=== PATIENT | male | born 1970 | race Caucasian/White ===

== ENCOUNTER 2017-12-15 15:18 | Emergency (ER) | payer OTHER ==
[2017-12-15 15:36] VITALS: BP 138/98; PULSE 101; O2SAT 99
--- NOTE | 2017-12-15 15:55 | ERPHSYRPT ---
- History of Present Illness Time Seen by Provider: 12/15/17 15:46 Source: patient Exam Limitations: no limitations Patient Subjective Stated Complaint: pt reports a few days ago he had to pull several ticks off of him-reports area on left abd and right briseno-red swollen and painful-unsure of fever but reports sweating more often lately-reports nausea with no vomiting or diarrhea-all over body aches Triage Nursing Assessment: pt pink warm and [id number] drainage noted from either area but redness and tenderness noted Physician History: 47-year-old white male arrives with complaints of tic bites to his left abdomen right briseno. He states he bit him several days ago he pulled them off he now has a small area of erythema on his left abdomen and a small area of erythema on his right briseno of the right briseno has a central darkened area no obvious ticks, he feels like he has fever. He has not been vomiting. Past medical history negative. Past surgical history includes orthopedic surgery on the right shoulder. Timing/Duration: day(s) (2 days) Severity: moderate Modifying Factors: Improves With: immobilization Associated Symptoms: nausea, malaise, No vomiting, No abdominal pain, No shortness of breath, No heartburn, No diaphoresis, No cough, No chills, No chest pain, No fever, No headaches, No loss of appetite, No rash, No syncope, No seizure, No weakness Allergies/Adverse Reactions: No Known Drug Allergies Allergy (Unverified 12/15/17 15:35) Hx Tetanus, Diphtheria Vaccination/Date Given: Yes (2016) Hx Influenza Vaccination/Date Given: No Hx Pneumococcal Vaccination/Date Given: No Immunizations Up to Date: Yes - Review of Systems Constitutional: Malaise, No Fever, No Chills Eyes: No Symptoms Ears, Nose, & Throat: No Symptoms Respiratory: No Cough, No Dyspnea Cardiac: No Chest Pain, No Edema, No Syncope Abdominal/Gastrointestinal: Nausea, No Abdominal Pain, No Vomiting, No Diarrhea , No Constipation, No Hematemesis, No Hematochezia, No Melena, No Dysphagia, No Appetite Changes Genitourinary Symptoms: No Symptoms Musculoskeletal: No Back Pain, No Neck Pain Skin: Other (erythematous area left abdomen, right briseno) Neurological: No Dizziness, No Focal Weakness, No Sensory Changes Psychological: No Symptoms Endocrine: No Symptoms All Other Systems: Reviewed and Negative - Past Medical History Pertinent Past Medical History: No - Past Surgical History Past Surgical History: Yes Musculoskeletal: Orthopedic Surgery Other Surgical History: right shoulder - Social History Smoking Status: Current every day smoker How long have you smoked: yrs Exposure to second hand smoke: Yes Drug Use: none Patient Lives Alone: No - Nursing Vital Signs Nursing Vital Signs: Initial Vital Signs Temperature 98.9 F 12/15/17 15:30 Pulse Rate 101 H 12/15/17 15:30 Respiratory Rate 18 12/15/17 15:30 Blood Pressure 138/98 12/15/17 15:30 O2 Sat by Pulse Oximetry 99 12/15/17 15:30 Pain Scale Pain Intensity 7 - Physical Exam General Appearance: no apparent distress, alert Eye Exam: PERRL/EOMI, eyes nml inspection Ears, Nose, Throat Exam: normal ENT inspection Neck Exam: normal inspection, non-tender, supple, full range of motion Respiratory Exam: normal breath sounds, lungs clear, No respiratory distress Cardiovascular Exam: regular rate/rhythm, normal heart sounds, normal peripheral pulses Gastrointestinal/Abdomen Exam: soft, normal bowel sounds, No tenderness, No mass Back Exam: normal inspection Extremity Exam: normal inspection, normal range of motion, pelvis stable Neurologic Exam: alert, oriented x 3, cooperative, epic cupid specialists II-XII nml as tested, normal mood/affect, nml cerebellar function, nml station & gait, sensation nml, No motor deficits Skin Exam: other (slight erythema left anterior abdomen approximately 1cm, ,, 1 cm slightly raised erythemma right anterior briseno darkened area centrally no tick noted) SpO2 Interpretation: normal (99%) SpO2: 99 Oxygen Delivery: Room Air - Course Nursing assessment & vital signs reviewed: Yes Ordered Tests: Active Orders 24 hr Category Date Time Status Wound Care STAT Care 12/15/17 15:49 Active Medication Summary Discontinued Medications Generic Name Dose Route Start Last Admin Trade Name Freq PRN Reason Stop Dose Admin Bacitracin Zinc 0.9 gm 12/15/17 15:49 Baciguent Packet TP 12/15/17 15:50 STAT ONE Diphtheria/Tetanus/Acell Pertussis 0.5 ml 12/15/17 15:50 Adacel Vial IM 12/15/17 15:51 .ONCE ONE Doxycycline Hyclate 100 mg 12/15/17 15:58 Vibramycin 100 Mg PO 12/15/17 15:59 STAT ONE - Progress Progress: improved Progress Note: 12/15/17 15:54 This is a 47-year-old white male who arrives with complaints that he pulled some ticks off of him 2 days ago. He states he has erythema in the area where he pulled them off. He has slight erythema on the left anterior abdomen approximately 1 cm slightly raised. He also has a 1 cm area which is raised on the right anterior briseno this has a dark center I do not see a tick. This does not look typical for tic bites. However Will go ahead and place patient on doxycycline 100 mg orally twice a day for 10 days. Will have patient take Tylenol every 4-6 hours as needed for pain alternately Motrin every 6 hours as needed for pain. Will have nurses clean the area apply bacitracin. Will give patient tetanus injection. - Departure Time of Disposition: 15:56 Departure Disposition: Home Clinical Impression: Insect bite Qualifiers: Encounter type: initial encounter Qualified Code(s): W57.XXXA - Bitten or stung by nonvenomous insect and other nonvenomous arthropods, initial encounter Tick bite Qualifiers: Encounter type: initial encounter Qualified Code(s): W57.XXXA - Bitten or stung by nonvenomous insect and other nonvenomous arthropods, initial encounter Condition: Fair Critical Care Time: No Additional Instructions: Return home. Plenty of fluids. Tylenol every 4 hours as needed for pain. Motrin every 6 hours as needed for pain. Clean lesion right leg and apply bacitracin daily. Doxycycline 100 mg orally twice a day for 10 days. Follow-up with your family doctor. Return for acute distress or for severe symptoms. Prescriptions: Doxycycline Hyclate 100 mg [Vibramycin 100 MG] 100 mg PO BID #20 tab
[2017-12-15] MEDS ORDERED: BACIGUENT PACKET ONE (15:57)
[2017-12-15] MEDS ORDERED: Adacel Vial IM ONE (15:58)
[2017-12-15] MEDS: Adacel Vial IM ONE (16:02)
[2017-12-15] MEDS: BACIGUENT PACKET TP ONE (16:02)
[2017-12-15] MEDS ORDERED: Vibramycin 100 MG ONE (16:04)
[2017-12-15] MEDS: Vibramycin 100 MG PO ONE (16:07)
== END 2017-12-15 16:08 | disposition home or self-care (01) ==
LOC: ED 15:18
DX: W57.XXXA Bitten or stung by nonvenomous insect and other nonvenomous arthropods, initial encounter (principal); Z72.0 Tobacco use
CPT/HCPCS: 90471; 90715; 99283; A9270-GY

== ENCOUNTER 2023-04-29 16:55 | Emergency (ER) | payer OTHER ==
[2023-04-29] MEDS ORDERED: XYLOCAINE 1% HCL 20 ML MDV IJ ONE (16:56)
[2023-04-29 17:08] VITALS: BP 160/102; PULSE 83; RESP 18; TEMP 97.9; O2SAT 95
[2023-04-29] MEDS: Rocephin 1000 MG INJ IM ONE (17:13)
--- NOTE | 2023-04-29 17:29 | ERPHSYRPT ---
- History of Present Illness Time Seen by Provider: 04/29/23 17:10 Source: patient Exam Limitations: no limitations Patient Subjective Stated Complaint: Dental pain Triage Nursing Assessment: Patient ambulated back to ED and transferred self to bed. Patient A+O X 3. Patient's skin pink, warm and dry. Patient complains of left upper back tooth pain for 3 days. Patient does have dentist appointment tomorrow, but the pain is worse 7/10. Left upper back tooth noted to be broken and decayed with red and swollen gum with abscess noted above tooth. Physician History: 52-year-old male presents to our ED for antibiotics to initiate treatment for canine space abscess. Patient called his dental office today. He has an appointment scheduled for tomorrow however he was unable to be seen today so the office advised him to come to our ED for antibiotic prescription. Symptoms started 3 days ago. Dental abscess has been progressive and intensity/pain in size. No trauma. No fever no headache. No nausea or vomiting. Symptoms are moderate in intensity. Palpation mastication reproduce pain. Pain improved somewhat with rest. Patient otherwise feels well. He voices no other complaints or concerns at this time. Portions of this note were created with voice recognition technology. There may be grammatical, spelling, punctuation or sound alike errors Timing/Duration: day(s) (3 days ago) Severity: moderate Modifying Factors: Improves With: nothing Associated Symptoms: denies symptoms Allergies/Adverse Reactions: No Known Drug Allergies Allergy (Verified 04/29/23 16:59) Hx Tetanus, Diphtheria Vaccination/Date Given: Yes (2016) Hx Influenza Vaccination/Date Given: No Hx Pneumococcal Vaccination/Date Given: No Immunizations Up to Date: Yes Travel Risk - International Travel Have you traveled outside of the country in past 3 weeks: No - Coronavirus Screening Are you exhibiting any of the following symptoms?: No Close contact with a COVID-19 positive Pt in past 14-21 Days: No - Vaccine Status Have you recieved a Covid-19 vaccination: No - Review of Systems Constitutional: No Symptoms, No Fever, No Chills Eyes: No Symptoms Ears, Nose, & Throat: No Symptoms Respiratory: No Symptoms, No Cough, No Dyspnea Cardiac: No Symptoms, No Chest Pain, No Edema, No Syncope Abdominal/Gastrointestinal: No Symptoms, No Abdominal Pain, No Nausea, No Vomiting, No Diarrhea Genitourinary Symptoms: No Symptoms, No Dysuria Musculoskeletal: No Symptoms, No Back Pain, No Neck Pain Skin: No Symptoms, No Rash Neurological: No Symptoms, No Dizziness, No Focal Weakness, No Sensory Changes Psychological: No Symptoms Endocrine: No Symptoms Hematologic/Lymphatic: No Symptoms Immunological/Allergic: No Symptoms All Other Systems: Reviewed and Negative - Past Medical History Pertinent Past Medical History: No - Past Surgical History Past Surgical History: Yes Musculoskeletal: Orthopedic Surgery Other Surgical History: right shoulder - Social History Smoking Status: Current every day smoker How long have you smoked: yrs Exposure to second hand smoke: Yes Drug Use: marijuana, methamphetamines Patient Lives Alone: No - Nursing Vital Signs Nursing Vital Signs: Initial Vital Signs Temperature 97.9 F 04/29/23 17:00 Pulse Rate 83 04/29/23 17:00 Respiratory Rate 18 04/29/23 17:00 Blood Pressure 160/102 04/29/23 17:00 O2 Sat by Pulse Oximetry 95 04/29/23 17:00 Pain Scale Pain Intensity 7 - Physical Exam General Appearance: no apparent distress, alert Eye Exam: PERRL/EOMI, eyes nml inspection Ears, Nose, Throat Exam: normal ENT inspection, TMs normal, pharynx normal, moist mucous membranes Neck Exam: normal inspection, non-tender, supple, full range of motion Respiratory Exam: normal breath sounds, lungs clear, airway intact, No respiratory distress Cardiovascular Exam: regular rate/rhythm, normal heart sounds, normal peripheral pulses Gastrointestinal/Abdomen Exam: soft, normal bowel sounds, No tenderness, No mass Back Exam: normal inspection, normal range of motion, No CVA tenderness, No vertebral tenderness Extremity Exam: normal inspection, normal range of motion, pelvis stable Neurologic Exam: alert, oriented x 3, cooperative, normal mood/affect, nml cerebellar function, nml station & gait, sensation nml, No motor deficits Skin Exam: normal color, warm, dry, No rash Lymphatic Exam: No adenopathy SpO2 Interpretation: normal SpO2: 95 O2 Delivery: Room Air - Course Nursing assessment & vital signs reviewed: Yes Ordered Tests: Medication Summary Discontinued Medications Generic Name Dose Route Start Last Admin Trade Name Freq PRN Reason Stop Dose Admin Ceftriaxone Sodium 1,000 mg 04/29/23 17:08 04/29/23 17:13 Ceftriaxone Sodium 1000 Mg Inj Vial IM 04/29/23 17:09 1,000 mg STAT ONE Administration Ibuprofen 600 mg 04/29/23 17:27 Ibuprofen 600 Mg Tablet PO 04/29/23 17:28 STAT ONE - Progress Progress: improved Progress Note: Patient is a 52-year-old male presents to our ED with a canine space abscess. Patient received an IM dose of Rocephin in our ED. Patient agreed to oral dose of ibuprofen. A prescription for Augmentin was forwarded to patient's pharmacy. Patient to start Augmentin tomorrow. Patient agrees to follow-up with his dentist tomorrow as planned. Patient voices no other complaints or concerns at this time. Will discharge home. He voices no other complaints or concerns Portions of this note were created with voice recognition technology. There may be grammatical, spelling, punctuation or sound alike errors Complexity of problems addressed is low acute uncomplicated Complexity of data reviewed and analyzed as none. Diagnosis made based on history and physical examination. No specialized testing ordered Risk of complication and or risk of morbidity/mortality of patient management is moderate. A prescription for Augmentin forwarded to patient's pharmacy Vital stable. Time spent to discharge patient is approximately 15 minutes. Plan of care established for shared decision making. No social determinants of health present impede follow-up. Portions of this note were created with voice recognition technology. There may be grammatical, spelling, punctuation or sound alike errors 04/29/23 17:36 Counseled pt/family regarding: diagnosis, need for follow-up - Departure Departure Disposition: Home Clinical Impression: Dental abscess, Pain, dental, Carious teeth Condition: Stable Critical Care Time: No Referrals: JUSTIN LERNER [Primary Care Provider] - Follow up/PCP as directed Additional Instructions: Discharge/Care Plan MELANIECHESTER LOMAX was seen on 04/29/23 in the Emergency Room. The patient was counseled regarding Diagnosis,Lab results, Imaging studies, need for follow up and when to return to the Emergency Room. Prescriptions given: Discharge Note I have spoken with the patient and/or caregivers. I have explained the patient's condition, diagnosis and treatment plan based on the information available to me at this time. I have answered the patient's and/or caregiver's questions and addressed any concerns. The patient and/or caregivers have as good understanding of the patient's diagnosis, condition and treatment plan as can be expected at this point. The vital signs have been stable. The patient's condition is stable and appropriate for discharge from the emergency department. The patient will pursue further outpatient evaluation with the primary care physician or other designated or consulting physician as outlined in the discharge instructions. The patient and/or caregivers are agreeable to this plan of care and follow-up instructions have been explained in detail. The patient and/or caregivers have received these instruction. The patient/and or caregivers are aware that any significant change in condition or worsening of symptoms should prompt an immediate return to this or the closest emergency department or call 911. Prescriptions: Amox Tr/Potass Clav. 875 mg [Augmentin 875-125 Tablet] 875 mg PO BID 7 Days #14 tablet
[2023-04-29] MEDS ORDERED: MOTRIN 600 MG ONE (17:30)
[2023-04-29] MEDS: MOTRIN 600 MG PO ONE (17:31)
== END 2023-04-29 17:41 | disposition home or self-care (01) ==
LOC: ED 16:55
DX: K04.7 Periapical abscess without sinus (principal); K08.89 Other specified disorders of teeth and supporting structures; K02.9 Dental caries, unspecified; Z28.310 Unvaccinated for COVID-19; Z72.0 Tobacco use
CPT/HCPCS: 96372; 99283; J0696; A9270-GY